=== PATIENT | female | born 1970 ===

== ENCOUNTER 2021-10-16 05:36 | Day surgery (SDC) | payer OTHER ==
[~2021-10-16 05:36] MED LIST: ZESTRIL20 MG PO
== END 2021-10-16 14:55 | disposition home or self-care (01) ==
LOC: CIR.AMB 05:36 → CERT RX 07:45 → CIR.AMB 10:00
PROVIDERS: ATTEND Otolaryngology Otology & Neurotology
DX: H90.72 Mixed conductive and sensorineural hearing loss, unilateral, left ear, with unrestricted hearing on the contralateral side (principal); H74.12 Adhesive left middle ear disease